=== PATIENT | male | born 1965 | race African-American/Black ===

== ENCOUNTER 2021-05-24 09:37 | Outpatient (CLI) | payer OTHER | END 2021-05-24 09:38 | disposition home or self-care (01) | LOC: BICRAD 09:37 | PROVIDERS: ATTEND Psychiatry & Neurology Neurology | DX: I50.9 Heart failure, unspecified (principal); R91.8 Other nonspecific abnormal finding of lung field | CPT/HCPCS: 71045 ==

== ENCOUNTER 2025-02-02 08:41 | Emergency (ER) | payer BC, MEDICARE ==
[2025-02-02 09:17] LABS: #Basophils 0.03 10x3/uL (0.0-0.2); #Eosinophils 0.19 10x3/uL (0.0-0.7); #Monocytes 0.76 10x3/uL (0.11-0.59); #Neutrophils 1.99 10x3/uL (1.40-6.50); %Basophils 0.7 % (0.0-1.0); %Eosinophils 4.4 % (0.0-10.0); %Lymphocytes 30.7 % (21.0-51.0); %Monocytes 17.7 % (0.0-10.0); %Neutrophils 46.3 % (42.0-75.0); Hematocrit 46.5 % (42.0-52.0); Hemoglobin 15.3 g/dL (14.0-18.0); Mean Corpuscular Hemoglobin 26.9 pg (27.0-31.0); Mean Corpuscular Volume 81.9 fL (78.0-98.0); Platelet Count 220 10x3/uL (130-400); Red Blood Cell (RBC) Count 5.68 mill/uL (4.70-6.10); White Blood Cell (WBC) Count 4.30 10x3/uL (4.8-10.8)
[2025-02-02 09:40] LABS: ALT (SGPT) 20 U/L (Less than 45); AST (SGOT) 31 U/L (11-34); Albumin 3.4 g/dL (3.1-4.5); Alkaline Phosphatase 80 U/L (40-110); Anion Gap 14 mmol/L (10-20); BUN (Urea Nitrogen) 18 mg/dL (8.4-25.7); Bilirubin, Total 0.4 mg/dL (0.3-1.2); Calc. Creatinine Clearance 0 mL/min (70-130); Calcium 9.1 mg/dL (7.8-10.44); Carbon Dioxide 24 mmol/L (22-29); Chloride 107 mmol/L (98-107); Globulin 4.7 g/dL (2.4-3.5); Glucose 116 mg/dL (70-105); Potassium 3.9 mmol/L (3.5-5.1); Sodium 141 mmol/L (136-145)
[2025-02-02] MEDS ORDERED: cefTRIAXone (ROCEPHIN) 1 GM VIAL ONE (10:51)
== END 2025-02-02 11:56 | disposition home or self-care (01) ==
LOC: ERS 08:41
DX: L03.115 Cellulitis of right lower limb (principal); I10 Essential (primary) hypertension; E11.9 Type 2 diabetes mellitus without complications; I25.2 Old myocardial infarction; E78.00 Pure hypercholesterolemia, unspecified; Z79.84 Long term (current) use of oral hypoglycemic drugs; Z79.899 Other long term (current) drug therapy; Z55.6 Problems related to health literacy
CPT/HCPCS: 80053; 85025; 85379; 93005; 93971; J0696; 96365